=== PATIENT | male | born 1955 | race Caucasian/White ===

== ENCOUNTER → 2016-10-31 | Outpatient (CLI) | payer OTHER ==
[~2016-10-31] MED LIST: ALTACE PO; AMLODIPINE BESYL5 MG PO; ASPIRIN PO; ATENOLOL50 MG PO; ECHINACEA; ECHINACEA400 MG PO; FISH OIL 1,0001 CAP PO; FISH OIL 1,0001 EAC1 PO; GARLIC OIL500 MG PO; GARLIC PO; KEFLEX PO; LEVAQUIN; MULTI-VITAMIN1 TAB; MULTIPLE VITAM1 EAC1; NABUMETONE500 MG PO; PERCOCET5/325 PO; SAW PALMETTO500 MG PO; VIT C
--- NOTE | ~2016-10-31 | CT57 ---
[facility] A Service of [facility] & [facility] RADIOLOGY TEXT RESULTS PATIENT: MAURISIO VENEGAS [facility] UNIT #: [id number] AGE: [address]: Chris Messina SEX: M ORDER DR: [id number] [facility] [address]. [place], [place] [address] [id number] O MR#: [id number] Acc #: [id number] NAME: MAURISIO VENEGAS : 1955 SEX: M STUDY DATE/TIME: 10/31/2016 1233 UNIT: CCAT ROOM: STUDY DESCRIPTION: CT Chest Wo Cont Attending Physician: Chris Messina M.D. Referring Physician: Chris Messina M.D. Ordering Physician: Chris Messina M.D. Primary Care Physician: Yaron Liriano M.D. MEDICAL IMAGING REPORT This report is preliminary unless electronic signature is present EXAM CT chest without contrast 10/31/2016 1233 hours CLINICAL HISTORY 61-year-old man without history of primary tumor for followup of small bilateral lung nodules. History of asbestos exposure 1979. COMPARISON CT chest 10/15/2013 TECHNIQUE Helical noncontrasted images were obtained from the lung apices through the adrenal glands. Sagittal and coronal reconstructions were performed. Total exam DLP 43 mGy-cm. This CT exam was performed with one or more of the following radiation dose reduction techniques: automatic exposure control, adjustment of mA and/or kV according to patient size, and iterative reconstruction. FINDINGS Images through the thoracic inlet demonstrate no thyroid lesion or enlargement. No supraclavicular adenopathy. Images through the chest demonstrate a benign densely calcified anterior mediastinal lymph node which is stable. Aortic size is normal. Cardiac chambers and pericardium are normal. There is no pathologic adenopathy. The lung window images demonstrate no change from 10/15/2013. There are small noncalcified nodules in both lungs including a small nodule in the right upper lobe, laterally in the right lower lobe, posterolaterally at the left lung base. There is calcification or suture material in the medial left upper lobe unchanged. No new pulmonary densities or effusions. [facility] A Service of [facility] & [facility] RADIOLOGY TEXT RESULTS PATIENT: MAURISIO VENEGAS [facility] UNIT #: [id number] AGE: [address]: Chris Messina SEX: M ORDER DR: Limited views through the upper abdomen are negative. IMPRESSION 1. Stable chest CT with small noncalcified nodules in both lungs unchanged from CT scan 10/15/2013 and previously unchanged from older studies. These are benign and require no additional followup. 2. Stable benign calcified granulomatous changes. Dictated by... Susan Camacho M.D. THIS IS AN ELECTRONICALLY VERIFIED REPORT Susan Camacho M.D. at 10/31/2016 8:09 PM Antoine TD: 10/31/2016 16:40 JOB #: [id number] MEDICAL IMAGING REPORT Page 1 of 1 COPY
== END | disposition home or self-care (01) ==
LOC: CCAT 12:10
DX: R91.1 Solitary pulmonary nodule (principal); R91.8 Other nonspecific abnormal finding of lung field
CPT/HCPCS: 71250

== ENCOUNTER → 2017-01-03 | Day surgery (SDC) | payer OTHER ==
--- NOTE | ~2017-01-03 | OR ---
Unit #: [id number] #: [id number] Patient: MAURISIO VENEGAS [id number] [address] [place], [place] [address] [id number] O MR#: [id number] NAME: MAURISIO VENEGAS ROOM: Date of Procedure: 01/03/2017 Admission Date: 01/03/2017 Surgeon: Kevin Mark M.D. : 1955 Attending Physician: Kevin Mark M.D. Primary Care Physician: Yaron Liriano M.D. OPERATIVE REPORT PREOPERATIVE DIAGNOSES Colorectal cancer screening in an average-risk patient. PROCEDURES PERFORMED Colonoscopy and polypectomy. POSTOPERATIVE DIAGNOSES 1. Single sessile polyp in the mid descending colon. This was about 5 mm in size. It was removed using snare polypectomy. 2. Scant sigmoid diverticulosis. 3. Rest of the examination up to cecum and terminal ileum was normal. The quality of the prep was excellent. RECOMMENDATIONS Follow up results of polyp histology and consider repeat examination of the colon in 5 years. SEDATION USED MAC. DESCRIPTION OF PROCEDURE Following detailed explanation of the potential risks and complications of a colonoscopy, namely perforation, bleeding, and complications related to sedation, the patient was brought to GI lab and laid in the left lateral decubitus position. A digital rectal examination was performed, which was normal. Lubricated tip of the Olympus video colonoscope was inserted through the anus and advanced under direct vision. The scope was advanced and passed up to sigmoid into descending colon. Scant small diverticula were noted in this area. The scope tip was then navigated all the way up to cecum with visualization of the ileocecal valve and the appendiceal orifice. Preparation was excellent with good visualization and photodocumentation was obtained. Last several inches of the terminal ileum also visualized after intubation of the ileocecal valve and appeared normal. Successive segments of the colonic mucosa were examined upon withdrawal and appeared unremarkable except for a single sessile polyp in the proximal descending colon. This was about 5 mm in size. It was removed using snare polypectomy. The polyp was retrieved and sent for histology. No additional polyps noted. Other than the scant diverticula seen in the left side, no other abnormalities found. The patient did not have any hemorrhoids at anal verge. The scope was then withdrawn. The patient returned to the recovery area. The patient tolerated the procedure without any postprocedure complications. Unit #: [id number] #: [id number] Patient: MAURISIO VENEGAS Dictated by... Mike Kuhn/bhavik TD: 01/03/2017 16:59 JOB #: [id number] OPERATIVE REPORT Page 1 of 1 X Kevin Mark MD PROCEDURE OPERATIVE NOTE
== END | disposition home or self-care (01) ==
LOC: COPS 11:47
DX: Z12.11 Encounter for screening for malignant neoplasm of colon (principal); D12.4 Benign neoplasm of descending colon; K57.30 Diverticulosis of large intestine without perforation or abscess without bleeding; I10 Essential (primary) hypertension; G47.30 Sleep apnea, unspecified; Z86.010 Personal history of colon polyps; Z79.82 Long term (current) use of aspirin; Z79.899 Other long term (current) drug therapy; Z99.81 Dependence on supplemental oxygen; Z79.1 Long term (current) use of non-steroidal anti-inflammatories (NSAID); Z98.890 Other specified postprocedural states
CPT/HCPCS: 88305; J2250